=== PATIENT | female | born 1995 | race Caucasian/White ===

== ENCOUNTER 2019-05-22 08:50 | Day surgery (SDC) | payer OTHER ==
[~2019-05-22] VITALS: Ht 165.1 cm; Wt 129.3 kg
[~2019-05-22 08:50] MED LIST: AMETHIA; ARIPIPRAZOLE TAB 5MG; BUPROPION XL300 MG PO; FLUTICASONE PRO16 GM NASAL; MELATONIN 3 MG1 TAB PO; MINIPRESS2 MG PO; RANITIDINE TAB 150; ZOFRAN ODT4 MG/UDTAB PO; ZYRTEC10 MG PO
[2019-05-22 09:13] LABS: HEMATOCRIT 45.6 % (36.0-48.0); HEMOGLOBIN 14.7 g/dL (12-16); MCH 29.8 pg (26.0-34.0); MCHC 32.2 g/dL (31.0-37.0); MCV 92.5 fL (80.0-100.0); MEAN PLATELET VOLUME 10.2 fL (7.4-10.4); RBC 4.93 10x6/uL (4.00-5.40); RDW 13.4 % (11.5-14.5); WBC 7.4 10x3/uL (4.8-10.8)
[2019-05-22 09:20] LABS: ANION GAP 4.8 mmol/L (8-16); CALCIUM 9.3 mg/dL (8.5-10.1); CARBON DIOXIDE 26.4 mmol/L (21.0-32.0); POTASSIUM - SERUM 4.2 mmol/L (3.5-5.1)
[2019-05-22 10:20] VITALS: BP 121/83; Ht 165.1 cm; Wt 129.3 kg
[2019-05-22 10:38] LABS: HCG URINE NEGATIVE (NEGATIVE)
[2019-05-22] MEDS ORDERED: HYDROCODON-ACE1 EAC7 PO (10:57)
[2019-05-22] MEDS ORDERED: PHENERGAN25 M1 PO (14:52)
== END 2019-05-22 15:41 | disposition home or self-care (01) ==
LOC: D.OPS 08:50 → D.PAN 11:45 → D.OPS 15:41
PROVIDERS: Anesthesiology; ATTEND Surgery
DX: K82.8 Other specified diseases of gallbladder (principal); E66.01 Morbid (severe) obesity due to excess calories; Z68.42 Body mass index [BMI] 45.0-49.9, adult; I10 Essential (primary) hypertension